=== PATIENT | female | born 1950 | race Caucasian/White ===

== ENCOUNTER 2017-02-12 07:05 | Observation (INO) | payer MEDICARE, OTHER ==
[2017-02-12] VITALS (29 sets, daily range): BP systolic 117–175; BP diastolic 61–118; PULSE 54–75; RESP 10–20; Ht 170.2 cm; Wt 87.0 kg
[~2017-02-12] VITALS: Ht 170.2 cm; Wt 87.0 kg
[~2017-02-12 07:05] MED LIST: AMLODIPINE PO; ASPIRIN PO; CALCIUM PO; METFORMIN PO; [UNRECOGNIZED DRUG - OTHER] PO; [UNRECOGNIZED DRUG - OTHER] PO; [UNRECOGNIZED DRUG - OTHER] PO
[2017-02-12] MEDS ORDERED: SOD CHLORIDE 0.9% 1,000 ML IV SCH ×2 (08:30→12:34)
[2017-02-12] MEDS ORDERED: AMLO5TAB4 PO ×2 (08:43→08:51)
[2017-02-12] MEDS ORDERED: ATOR80TA75 PO ×2 (08:44→08:52)
[2017-02-12] MEDS ORDERED: ASPI81TA3 PO ×2 (08:44→08:52)
[2017-02-12] MEDS ORDERED: FURO20TA3 PO ×2 (08:45→08:53)
[2017-02-12] MEDS ORDERED: CLOP75TA27 PO ×2 (08:45→08:52)
[2017-02-12] MEDS ORDERED: CARV6.2579 PO (08:45)
[2017-02-12] MEDS ORDERED: LEVO75TA5 PO (08:46)
[2017-02-12] MEDS ORDERED: METO-429 PO (08:46)
[2017-02-12] MEDS ORDERED: OLAN5TAB5 PO (08:49)
[2017-02-12] MEDS ORDERED: SIMV20TA PO (08:49)
[2017-02-12] MEDS ORDERED: FLUT16SP17 NASAL (08:50)
[2017-02-12] MEDS ORDERED: CALC500T91 PO (08:50)
[2017-02-12] MEDS ORDERED: CARV6.25 PO (08:52)
[2017-02-12] MEDS ORDERED: GLIP5TAB13 PO (08:53)
[2017-02-12] MEDS ORDERED: LOSA25TA5 PO ×2 (08:53→08:54)
[2017-02-12] MEDS ORDERED: HYDR12.58 PO (08:53)
[2017-02-12] MEDS ORDERED: MTF1000T PO (08:54)
[2017-02-12] MEDS ORDERED: RANO500T2 PO (08:55)
[2017-02-12 09:40] LABS: BASOPHILS % 0.5 % (0.0-2.0); EOSINOPHILS # 0.3 10^3/ul (0.0-0.5); EOSINOPHILS % 3.9 % (0.0-7.0); HEMATOCRIT 36.1 % (37.0-47.0); HEMOGLOBIN 11.9 g/dl (12.0-16.0); LYMPHOCYTES # 1.8 10^3/ul (0.8-2.9); LYMPHOCYTES % 27.2 % (15.0-51.0); MEAN CORPUSCULAR HEMOGLOBIN 27.8 pg (29.0-33.0); MEAN CORPUSCULAR VOLUME 84.3 fl (82.0-101.0); MEAN PLATELET VOLUME 8.9 fl (7.4-10.4); MONOCYTE # 0.5 10^3/ul (0.3-0.9); MONOCYTES % 7.6 % (0.0-11.0); NEUTROPHILS % 60.5 % (39.0-77.0); PLATELET COUNT 210 10^3/UL (140-415); RED BLOOD COUNT 4.28 10^6/ul (4.20-5.40); RED CELL DISTRIBUTION WIDTH 12.2 % (11.5-14.5); WHITE BLOOD COUNT 6.5 10^3/ul (4.8-10.8)
[2017-02-12 09:48] LABS: INR 0.85; PROTIME 11.6 Sec (12.2-14.2); PT RATIO 0.9
[2017-02-12 09:49] LABS: PARTIAL THROMBOPLASTIN TIME 25.8 Sec (25.0-35.0)
[2017-02-12] MEDS ORDERED: LIDOCAINE 1% (MDV) 20 ML INJ ONE (09:59)
[2017-02-12] MEDS ORDERED: FENTAnyl 50 MCG/ML VIAL ONE (09:59)
[2017-02-12] MEDS ORDERED: IODIXANOL LOCM 100 ML BTL ONE ×2 (09:59→12:01)
[2017-02-12] MEDS ORDERED: MIDAZOLAM 1 MG/ML 2 ML INJ ONE (10:00)
[2017-02-12] MEDS ORDERED: NITROGLYCERIN (IC) 100 MCG/ML INJ ONE ×2 (10:04→12:05)
[2017-02-12] MEDS ORDERED: VERAPAMIL 5 MG INJ ONE (10:04)
[2017-02-12] MEDS ORDERED: HEPARIN 1000 UNITS/ML 10 ML INJ ONE ×2 (10:04→11:37)
[2017-02-12 10:07] LABS: ALBUMIN 4.1 g/dl (3.3-4.9); ALBUMIN/GLOBULIN RATIO 1.17; BILIRUBIN,INDIRECT 0.4 mg/dl (0-1.1); BILIRUBIN,TOTAL 0.4 mg/dl (0.2-1.3); TOTAL PROTEIN 7.6 g/dl (6.1-8.1)
[2017-02-12 10:10] LABS: CALCIUM 9.4 mg/dl (8.4-10.2); CREATININE 1.15 mg/dl (0.44-1.00); POTASSIUM 4.6 mmol/L (3.5-5.1)
[2017-02-12 10:19] LABS: CK-MB 2.19 ng/ml (0.0-2.4); TROPONIN-I 0.047 ng/ml (0.00-0.12)
[2017-02-12] MEDS ORDERED: IOHEXOL 350MG/ML 50 ML BTL ONE (10:23)
[2017-02-12] MEDS ORDERED: ASPIRIN 325 MG TAB ONE (10:25)
[2017-02-12] MEDS ORDERED: CLOPIDOGREL 75 MG TAB ONE (10:25)
[2017-02-12] MEDS ORDERED: [UNRECOGNIZED DRUG - OTHER] IV ONE (11:00)
[2017-02-12] MEDS ORDERED: NITROGLYCERIN IV ONE ×2 (11:00)
[2017-02-12] MEDS ORDERED: VERAPAMIL IV ONE ×2 (11:00)
[2017-02-12] MEDS ORDERED: [UNRECOGNIZED DRUG - OTHER] IV ONE (11:00)
[2017-02-12] MEDS ORDERED: HEPARIN IV ONE ×2 (11:00)
[2017-02-12] MEDS ORDERED: SOD CHLORIDE 0.9% 500 ML ONE (12:01)
--- NOTE | 2017-02-12 12:56 | OPR ---
Date/Time of Note Date/Time of Note DATE: 02/12/17 TIME: 12:39 Operative Report Procedure Date: Feb 12, 2017 Procedure Description Environmental Services Supervisor: Dung Yo MD Indication: 66 year old with recurrent angina on optimized medical therapy and coreg and ranexa, and markedly abnormal stress test showing significant ischemia at diag and LCX area. pt's previous angiogram done in November 2016 at [facility] showed DRY TALC RACKER of distal LCX. Procure performed: #1 left heart catheterization and selective left coronary angiogram. #2 Right femoral angiogram and closure using a perclose device. 3. Successful PTCA and stenting of DRY TALC RACKER of distal LCX using a 2.5X20 mm synergy GUNNAR. 4. Successful Rotoblading/ atherectomy and PCTA/ stenting of ostial LCX using a 3x16 mm synergy GUNNAR 4. Moderate sedation for more than 120 minutes 6. IC NTG/ verepamil injection Findings: 1. Left main: is large and calcified and birfurcates to LAD & LCX. it has 20% distal stenosis. 2. LAD: has 30-50 % stenosis at proximal LAD, and 100% stenosis at mid LAD. ( previously known to have patent DUDLEY ---> LAD. Diagonal one is moderate size with 90% calcified ostial stenosis. Diagonal 2 is very small and has DRY TALC RACKER. Diagonal 3 is small and has 99-100% stenosis. distal to that LAD is occluded. 3. Left circumflex artery: is nondominant. it has 80-90% ostial heavily calcified stenosis ( --->0% post ROTOBLAD/ PCI), distal LCX is 100% occluded ( DRY TALC RACKER) ---> 0% post PCI. OM 1 is 100% occluded but previously known to have patent SVG ---> OM graft, 4. LV: 177/16, Aortic pressure 116/65 Procedure in detail: Written informed consent with obtained after risks benefits and alternatives discussed with the patient in detail. risks including but not limited to risk of infection vascular complications, bleeding complications, AR stroke arrhythmia renal failure at even were discussed with the patient in detail. Patient was brought into the cardiac medical laboratory technologist and placed in supine position. Right and left groin area was prepped and draped in regular sterile fashion and then he was in anesthetized using 1% lidocaine. Right femoral artery was cannulated and using modified seldinger technique a 5 Chinese sheath was placed in the right femoral artery. Right femoral angiogram was performed. perclsoe was place as " preclose" and changed the sheath to an 8 F sheath. Pigtail was advanced to engage the left ventricle hemodynamics as recorded by pullback aortic pressure was measured. At this time we decided to perform PCI of the LCX. 8 F Voda 3.5 guiding head was advanced to engage the Left main artery. Mechanical Equipment Sales Engineer 200 wire and corsair catheter was used and advanced and was able to cross into the DRY TALC RACKER and into the distal LCX. Corsair was advanced and changed the wire to a long BMW. corsair was then removed. I used a 2.0 followed by 2.5 noncomliant balloon which was placed across the lesion and predilated the vessel. then with use of corsair catheter I changed the wire to a roto wire. then ostial LCX which was heavily calcified was multiple times rotoblading done using a 1.5 senait. each time IC NTG. verepamil was given. then roto wire was removed and a BMW wire was advanced. 2.5x15 and 2. x 12 balloon was used to predilate the vessel but at distal LCX site the balloons bursted. changed to a cutting balloon 2.5x6 mm and cutting balloon angioplasty was done. Then I used a 2.5x20 mm synergy GUNNAR stent which was placed across the distal LCX lesion and deployed at 12 tess. then a 3x16 mm synergy GUNNAR was placed at ostial LCX (distally overlaping with the first stent) and deployed at 12 atmosphere. stent balloon was advanced and overlapping area was dilated at 12 atmosphere. Finally a 3x8 noncompliant balloon was used and postdilated the stent and up to 18atm. Final angiographic view was obtained which showed DIGNA-3 flow no evidence of dissection and no significant residual stenosis at the site of the stent. perclose was successfully deployed. Patient tolerated the procedure well with no complication. Patient was transferred to ICU in stable condition. Conclusions: Successful rotoblating / PTCA stenting of the ostial LCX artery from 80-90% stenosis to no significant residual stenosis using a 3X16 mm synergy GUNNAR stent. successful PTCA/ STENT of distal LCX from DRY TALC RACKER to 0% stenosis using a 2.x20 mm synergy GUNNAR Recommendations: Aggressive medical therapy. aspirin indefinitely dual antiplatlet therapy with Plavix. ICU care overnight. elective rotoblating and PCI Diagonal if pt remains symptomatic in 2-4 weeks DUNG YO MD [facility] DUNG YO MD Feb 12, 2017 12:55
[2017-02-12] MEDS ORDERED: ACETAMINOPHEN 325 MG TAB PO PRN (13:00)
[2017-02-12] MEDS ORDERED: morphine 2 MG INJ IV PRN (13:00)
[2017-02-12] MEDS ORDERED: OXYCODONE/ACETAMINOPHEN (5/325) TAB PO PRN ×2 (13:00)
--- NOTE | 2017-02-12 17:12 | RADRPT ---
Vent Rate: 57 bpm RR Interval: 0 msec [place] Interval: 160 msec QRS Duration: 110 msec QT Interval: 448 msec QTC Interval: 436 msec P-R-T [place]: 26 - -39 - 109 degrees Sinus bradycardia Left axis deviation Inferior infarct , age undetermined Anterolateral infarct , age undetermined Abnormal ECG Electronically Signed By: Xavier Key [id number]
[2017-02-12] MEDS ORDERED: ATORVASTATIN 80 MG TAB PO SCH (21:00)
[2017-02-12] MEDS: RANOLAZINE (SR) 500 MG TAB PO SCH (21:02)
[2017-02-13] VITALS (7 sets, daily range): BP systolic 119–148; BP diastolic 67–101; PULSE 76–87; RESP 17–21
[2017-02-13 05:33] LABS: BASOPHILS % 0.4 % (0.0-2.0); EOSINOPHILS # 0.2 10^3/ul (0.0-0.5); EOSINOPHILS % 3.4 % (0.0-7.0); HEMATOCRIT 34.8 % (37.0-47.0); HEMOGLOBIN 11.5 g/dl (12.0-16.0); LYMPHOCYTES # 1.3 10^3/ul (0.8-2.9); LYMPHOCYTES % 22.8 % (15.0-51.0); MEAN CORPUSCULAR HEMOGLOBIN 27.7 pg (29.0-33.0); MEAN CORPUSCULAR VOLUME 83.9 fl (82.0-101.0); MEAN PLATELET VOLUME 9.1 fl (7.4-10.4); MONOCYTE # 0.6 10^3/ul (0.3-0.9); MONOCYTES % 10.4 % (0.0-11.0); NEUTROPHILS % 62.6 % (39.0-77.0); PLATELET COUNT 191 10^3/UL (140-415); RED BLOOD COUNT 4.15 10^6/ul (4.20-5.40); RED CELL DISTRIBUTION WIDTH 12.2 % (11.5-14.5); WHITE BLOOD COUNT 5.7 10^3/ul (4.8-10.8)
[2017-02-13 05:53] LABS: CALCIUM 8.8 mg/dl (8.4-10.2); CHOL/HDL RATIO 3.4 RATIO; CREATININE 0.97 mg/dl (0.44-1.00); POTASSIUM 4.2 mmol/L (3.5-5.1)
[2017-02-13] MEDS: RANOLAZINE (SR) 500 MG TAB PO SCH (08:45)
[2017-02-13] MEDS ORDERED: glipiZIDE 5 MG TAB PO SCH (09:00)
[2017-02-13] MEDS ORDERED: CLOPIDOGREL 75 MG TAB PO SCH (09:00)
[2017-02-13] MEDS ORDERED: LOSARTAN 25 MG TAB PO SCH (09:00)
[2017-02-13] MEDS ORDERED: AMLODIPINE 5 MG TAB PO SCH (09:00)
[2017-02-13] MEDS ORDERED: HYDROCHLOROTHIAZIDE 12.5 MG CAP PO SCH (09:00)
[2017-02-13] MEDS ORDERED: FUROSEMIDE 20 MG TAB PO SCH (09:00)
[2017-02-13] MEDS ORDERED: ASPIRIN 81 MG TAB PO SCH (09:00)
--- NOTE | 2017-02-13 09:34 | HP ---
DATE OF ADMISSION: 02/12/2017 CHIEF COMPLAINT: Cardiac cath, chest pain. HISTORY OF PRESENT ILLNESS: This is a 66-year-old female with a past medical history of coronary disease, with previous history of CABG, history of hypertension, and dyslipidemia who presents to [facility] to undergo elective cardiac catheterization. The patient was seen by keg inspector, Dr. Yo, in outpatient setting with complaints of noted chest pain. As a result, the patient came to the hospital, underwent elective cardiac catheterization with successful PCI of the distal left circumflex. The patient following the procedure, was transferred to the intensive care unit where she has remained stable. There has been no reports of hemoptysis, hematemesis, or hematochezia. PAST MEDICAL HISTORY: As stated above. History of chronic disease, history of hypertension, history of dyslipidemia. PAST SURGICAL HISTORY: History of CABG, history of PCI. ALLERGIES: NO KNOWN DRUG ALLERGIES. FAMILY HISTORY: Noncontributory. SOCIAL HISTORY: Does not drink, smoke, or do drugs. MEDICATIONS: The patient's medications have been reviewed and reconciled. REVIEW OF SYSTEMS: A 14 point review of systems was conducted. Pertinent positives are stated in HPI, otherwise negative. PHYSICAL EXAMINATION: VITAL SIGNS: Blood pressure 133/75, respirations 19, pulse 72, temperature 98.5. HEENT: Head is normocephalic. NECK: Supple. HEART: Regular rate. LUNGS: Diminished breath sounds base. ABDOMEN: Soft, nontender to palpation. No rebound or guarding. EXTREMITIES: Negative for clubbing, cyanosis. No edema. DERMATOLOGIC: No rashes. MUSCULOSKELETAL: No joint effusion. NEUROLOGIC: No change in exam. MEDICATIONS: Patient's medications reviewed. LABORATORY DATA: Shows white count 5.7, hemoglobin 9.5, hematocrit 34.8, platelet count is 191,000. Sodium 144, BUN 46, BUN 22, creatinine 1.5. ASSESSMENT AND PLAN: This is a 66-year-old female who presents with: 1. Coronary artery disease, status post-PCI. The patient is currently stable. Continue current medical management. Follow up with Cardiology. 2. Diabetes. Continue Accu-Chek and sliding scale. 3. Hypertension. Continue current blood pressure regimen. 4. Renal insufficiency. Etiology is likely secondary to diuretics, ARB effect. The patient is being given IV fluids. Will follow up renal panel. Low suspicion, at this point, of contrast associated nephropathy. 5. Dyslipidemia. Continue statin therapy. 6. Gastrointestinal and deep venous thrombosis prophylaxis. Continue sequential leg squeezers and PPI. 7. Mild anemia. Monitor hemoglobin and hematocrit levels. Dictated By: Alexi Christopher DO /cam/adams /Document#: [id number]
--- NOTE | 2017-02-13 12:13 | CONS ---
Date/Time of Note Date/Time of Note DATE: 02/13/17 TIME: 12:10 Consult Date/Type/Reason Admit Date/Time Feb 12, 2017 at 12:37 Initial Consult Date Subjective d/w staff and son pt with no chest pain or pressure or groin pain. she wants to go home OBJECTIVE: General: no acute distress HEENT: NC/AT. pupils are equal. round. NECK: NO JVD. no stridor. CV: RRR. systolic murmur; no gallop or rubs. PULM: no wheezing or rhonchi. GI: SOFT, NT, ND, no rebound or guarding Extremity: trace B/L LE edema. no clubbing. neuro: awake and alert, OX3. Psych: calm and pleasant rectal: deferred : normal Vascular R femoral no bleeding or hematoma or tenderness Objective Vital Signs Date Time Temp Pulse Resp B/P Pulse Ox O2 Delivery O2 Flow Rate FiO2 02/13/17 10:00 78 19 119/73 Room Air 02/13/17 07:00 98.2 02/13/17 03:55 94 21 02/12/17 21:25 2.0 Intake and Output 02/12/17 02/12/17 02/13/17 15:00 23:00 07:00 Intake Total 235 ml 1155 ml 150 ml Output Total 0 ml 1250 ml 1250 ml Balance 235 ml -95 ml -1100 ml Results/Medications Result Diagram: 02/13/17 0440 02/13/17 0440 Results 24 hrs Laboratory Tests Test 02/13/17 04:40 White Blood Count 5.7 Red Blood Count 4.15 L Hemoglobin 11.5 L Hematocrit 34.8 L Mean Corpuscular Volume 83.9 Mean Corpuscular Hemoglobin 27.7 L Mean Corpuscular Hemoglobin Concent 33.0 Red Cell Distribution Width 12.2 Platelet Count 191 Mean Platelet Volume 9.1 Neutrophils % 62.6 Lymphocytes % 22.8 Monocytes % 10.4 Eosinophils % 3.4 Basophils % 0.4 Nucleated Red Blood Cells % 0.0 Neutrophils # (Manual) 3.5 Lymphocytes # 1.3 Monocytes # 0.6 Eosinophils # 0.2 Basophils # 0.0 Nucleated Red Blood Cells # 0.0 Sodium Level 141 Potassium Level 4.2 Chloride Level 100 Carbon Dioxide Level 29 Anion Gap 16 Blood Urea Nitrogen 16 Creatinine 0.97 Glucose Level 131 Calcium Level 8.8 Triglycerides Level 138 Cholesterol Level 148 LDL Cholesterol, Calculated 77 HDL Cholesterol 43 Cholesterol/HDL Ratio 3.4 Medications Current Medications Amlodipine Besylate (Norvasc) 5 mg DAILY PO Last administered on 02/13/17 08: 45; Admin Dose 5 MG; Start 02/13/17 at 09:00 Aspirin (Aspirin) 81 mg DAILY PO Last administered on 02/13/17 08:42; Admin Dose 81 MG; Start 02/13/17 at 09:00 Atorvastatin Calcium (Lipitor) 80 mg QHS PO Last administered on 02/12/17 21: 03; Admin Dose 80 MG; Start 02/12/17 at 21:00 Carvedilol (Coreg) 6.25 mg BID PO Last administered on 02/13/17 08:43; Admin Dose 6.25 MG; Start 02/12/17 at 21:00 Clopidogrel Bisulfate (plaVIX) 75 mg DAILY PO Last administered on 02/13/17 08 :42; Admin Dose 75 MG; Start 02/13/17 at 09:00 Furosemide (Lasix) 20 mg DAILY PO Last administered on 02/13/17 08:44; Admin Dose 20 MG; Start 02/13/17 at 09:00 Glipizide (Glucotrol) 5 mg DAILY PO Last administered on 02/13/17 08:49; Admin Dose 5 MG; Start 02/13/17 at 09:00 Hydrochlorothiazide (Hydrochlorothiazide) 12.5 mg DAILY PO Last administered on 02/13/17 08:45; Admin Dose 12.5 MG; Start 02/13/17 at 09:00 Losartan Potassium (Cozaar) 75 mg DAILY PO Last administered on 02/13/17 08:44 ; Admin Dose 75 MG; Start 02/13/17 at 09:00 Ranolazine (Ranexa) 500 mg Q12 PO Last administered on 02/13/17 08:45; Admin Dose 500 MG; Start 02/12/17 at 21:00 Assessment/Plan Chief Complaint/Hosp Course 1. angina and abnromal stress test 2. s/p PCI ROTO LCX 3. HTN 4. DM 5. Dyslipidemia 6. CHF class III STABLE NOW 7. HX CABG cont home meds except resume metformin tomorrow not today. dc home. outpt f/u with Dr Wong or me in 1 week Problems: DUNG BROWN MD Feb 13, 2017 12:13
== END 2017-02-13 13:05 | disposition home or self-care (01) ==
LOC: SDS 07:05 → ICU 12:37
PROVIDERS: ADMIT Internal Medicine; ATTEND Internal Medicine
DX: I25.118 Atherosclerotic heart disease of native coronary artery with other forms of angina pectoris (principal); Z95.1 Presence of aortocoronary bypass graft; E11.9 Type 2 diabetes mellitus without complications; I10 Essential (primary) hypertension; E78.5 Hyperlipidemia, unspecified; N28.9 Disorder of kidney and ureter, unspecified; D64.9 Anemia, unspecified
CPT/HCPCS: 80048; 80053; 80061; 82550; 82553; 82962; 84484; 85025; 85610; 85730; 87081; 93005; C1724; C1725; C1760; C1769; C1874; C1887; C1894; G0378; J1644; J2250; J3010; J7040; Q9967; J7030